=== PATIENT | female | born 1940 | race Caucasian/White ===

== ENCOUNTER 2016-09-09 15:04 | Inpatient (IN) | payer MEDICARE, BC ==
--- NOTE | ~2016-09-09 | DS ---
Unit #: [id number] #: [id number] Patient: VIMAL MELENDEZ [id number] [address] [address] [id number] I MR#: [id number] NAME: VIMAL MELENDEZ. ROOM: [facility] Age: 76 Sex: F Admission Date: 09/09/2016 : 1940 Discharge Date: 09/12/2016 Attending Physician: Allison Winter M.D. Primary Care Physician: Adelita Rodriguez M.D. DISCHARGE SUMMARY PRINCIPAL DISCHARGE DIAGNOSES 1. Upper gastrointestinal bleed. 2. Gastritis. 3. Esophageal ulcer. 4. B12 deficiency. 5. Type 2 diabetes mellitus. 6. Hyperlipidemia. 7. Hypertension. 8. Transfused one pack of RBCS for hemoglobin of less than 8. CONSULTANTS Dr. Roberth Nguyen. PROCEDURES EGD with biopsy on 09/10/2016. REASON FOR HOSPITALIZATION Patient is a 76-year-old white female with a history of gastric banding, hysterectomy, cholecystectomy, hypertension, type 2 diabetes mellitus, hyperlipidemia, presented with black tarry stools for 2 to 3 days, increasing fatigue, came to the emergency room. Hemoglobin was 8.4, coags were normal. CMP was normal except for GFR of 44 and a BUN of 35. Made NPO and started on IV Protonix, given a bolus of the continuous drip. GI was consulted. H and H were followed. Transfused one pack of RBCS for hemoglobin of less than 8. Underwent EGD on 09/10/2016 showing a distal esophageal ulcer and some gastritis. Biopsies were negative for urease. CT scan of the abdomen and pelvis was obtained as well, showing no acute findings, a few colonic diverticula, descending colon without diverticulitis, prior cholecystectomy, gastric band and hysterectomy changes. Patient's hemoglobin is stable, currently 9.0. She was found to have a low B12 and is being supplemented. She appears to be stable. Dr. Nguyen is planning outpatient colonoscopy. DISCHARGE MEDICATIONS 1. She is being discharged home with a prescription for Protonix 40 mg p.o. b.i.d. 2. She is to resume her gabapentin 300 mg q.h.s. 3. Glucophage XR 500 mg p.o. b.i.d. 4. Lasix 20 mg p.o. daily. 5. Pravachol 20 mg p.o. daily. 6. Losartan 50 mg p.o. b.i.d. 7. Humalog 75/25 KwikPen 30 units subcu b.i.d. 8. Centrum silver 1 daily. Unit #: [id number] #: [id number] Patient: VIMAL MELENDEZ 9. Hold aspirin. 10. Calcium plus D 600 mg daily. 11. B12 1,000 mcg sublingual daily. 12. Iron was actually high and will not be supplemented. FOLLOWUP She will need to follow up with Dr. Rodriguez in one week with a CBC and she will followup with Dr. Nguyen per his instructions. Dictated by... Mark Vallecillo M.D. GUY/phillip TD: 09/13/2016 06:31 JOB #: [id number] DISCHARGE SUMMARY Page 1 of 1 X Mark Vallecillo MD X DISCHARGE SUMMARY
--- NOTE | ~2016-09-09 | OR ---
Unit #: [id number] #: [id number] Patient: VIMAL MELENDEZ [id number] [address] [place], [place] [address] [id number] I MR#: [id number] NAME: VIMAL MELENDEZ ROOM: [facility] Date of Procedure: 09/10/2016 Admission Date: 09/09/2016 Surgeon: Roberth Nguyen M.D. : 1940 Attending Physician: Allison Winter M.D. Primary Care Physician: Adelita Rodriguez M.D. OPERATIVE REPORT PRIMARY CARE PHYSICIAN Ethan Rodriguez M.D. PREOPERATIVE DIAGNOSES Anemia, acute gastrointestinal blood loss, history of melena. PROCEDURES PERFORMED Upper gastrointestinal endoscopy and biopsy. POSTOPERATIVE DIAGNOSES 1. The patient had diffuse prepyloric antral mild gastritis. 2. There was a single 1.5 cm deep crater ulcer in the distal esophagus above the Lap-Band. 3. Postsurgical changes of Lap-Band surgery. 4. Rest of the examination up to third part of duodenum was normal. A biopsy was obtained from the antrum for CLOtest. RECOMMENDATIONS 1. The patient is advised to use pantoprazole 40 mg p.o. daily. 2. She will require a colonoscopy in the next few days and this can be scheduled as an outpatient in the next week to 10 days. 3. Her posttransfusion hemoglobin after 1 unit of packed cells went from 7.5 to 9 g and she can be discharged home if the hemoglobin is stable in the next 24 hours. SEDATION USED MAC. DESCRIPTION OF PROCEDURE Following detailed explanation of potential risks and complications of an upper endoscopy, namely perforation, bleeding, and complication related to sedation, the patient was brought to GI lab and laid in the left lateral decubitus position. Lubricated tip of the Olympus video upper endoscope was passed through the bite block into the proximal esophagus under direct vision. The entire esophageal mucosa was examined. The patient was noted to have postsurgical changes of Lap-Band surgery with a single large 1.5 cm ulcer in the distal esophagus above the Lap-Band surgery. This was crater and grayish-white base with no stigmata of recent bleed. The scope was then advanced into the gastric cavity. Postsurgical changes of Lap-Band surgery were seen. Mucosa of the fundus, body, and antrum examined and the patient was noted to have a diffuse antral gastritis. Pylorus was intubated with visualization of normal duodenal bulb and Unit #: [id number] #: [id number] Patient: VIMAL MELENDEZ second and third part of the duodenum. Upon withdrawal and retroflexion, incisura, cardia, and greater curve examined and biopsy obtained from the antrum for CLOtest. The scope was withdrawn in the distal esophagus. Entire esophageal mucosa was examined all the way to pharynx and no additional findings noted. The patient tolerated the procedure without any postprocedure complications. Dictated by... Noemí Almeida/chet TD: 09/10/2016 23:34 JOB #: [id number] CC: Noemí Colmenares M.D. OPERATIVE REPORT Page 1 of 1 X Roberth Nguyen MD X PROCEDURE OPERATIVE NOTE
--- NOTE | ~2016-09-09 | CO ---
Unit #: [id number] #: [id number] Patient: VIMAL MELENDEZ [id number] [address] [place], [place] [address] [id number] I MR#: [id number] NAME: VIMAL MELENDEZ. ROOM: [facility] Age: 76 Sex: F Admission Date: 09/09/2016 : 1940 Attending Physician: Allison Winter M.D. Primary Care Physician: Adelita Rodriguez M.D. Consultation Date: 09/10/2016 CONSULTATION REPORT REASON FOR CONSULTATION Iron-deficiency anemia and history of melena. HISTORY OF PRESENT ILLNESS Ms. Melendez is a 76-year-old white female. The patient is status post lap band surgery more than 5 years. She has presented with history of increasing constipation followed by left lower quadrant abdominal pain and history of black tarry stools. Upon her evaluation, she has been found to have moderately severe iron deficiency anemia. The patient says she was getting increasingly fatigued and tired over the past several weeks. Her admission hemoglobin is 7.4, and since then she has been given unit of packed cells. PAST MEDICAL HISTORY Significant for history of diabetes, hypertension, hyperlipidemia. PAST SURGICAL HISTORY Included lap band surgery as well as cholecystectomy, hysterectomy, bladder surgery, removal of cyst from the throat and breast. MEDICATIONS At home included gabapentin, Lasix, Humalog insulin, Glucophage, Pravachol, losartan, Centrum Silver, Caltrate, and aspirin. ALLERGIES She is allergic to penicillins cause itching and rash, sulfonamides, and codeine. SOCIAL HISTORY The patient lives by herself. Does not smoke or drink alcohol. FAMILY HISTORY Significant for diabetes. No family history of colon, pancreatic cancer, or liver disease. REVIEW OF SYSTEMS Detailed review of organ systems significant for history of increasing fatigue and lethargic. There is also history of left lower quadrant abdominal pain. History of melena as mentioned above. No history of fever, chills, or rigors. No history of weight loss. No history of headache, seizures, or chest pain. No history of cough, expectoration, or hemoptysis. No history of focal seizures or extremity weakness. Rest of review of organ systems is unremarkable. Unit #: [id number] #: [id number] Patient: VIMAL MELENDEZ PHYSICAL EXAMINATION GENERAL: She is alert and oriented, and comfortable and pale. VITAL SIGNS: Indicate a temperature of 97.9, pulse 83 per minute and regular, respirations 22, and blood pressure 142/77. She weighs 182 pounds and her baseline weight in the past has been about 210 pounds. HEENT: She has moderate pallor. There being no icterus, lymphadenopathy, or peripheral edema. CARDIOVASCULAR: Normal heart sounds. No murmurs on auscultation. LUNGS: Reveal normal breath sounds. Good air entry. ABDOMEN: Soft, obese, and nontender. Liver and spleen are not palpable. Bowel sounds normal. DIAGNOSTIC STUDIES LABORATORY RESULTS: Hemoglobin of 7.3 with normochromic normocytic red cell indices. White count is normal and platelet count is also normal. Serum chemistry shows a BUN and creatinine of 35 and 1.2. LFTs are normal. Glycohemoglobin has not been done. IMPRESSION 1. The most likely etiology of the patient's presentation is gastrointestinal bleed with underlying iron deficiency anemia. The patient has a history of melena and therefore an upper endoscopy will be performed today. If the latter is normal, a colonoscopy entertained later on or as an outpatient. 2. We will also obtain serum iron, TIBC, ferritin, B12, and folate levels. 3. Obtain stool studies for occult blood. 4. Underlying history of obesity, diabetes, hypertension, and hyperlipidemia. Thank you very much for asking me to see this pleasant woman. I appreciate the consult. Dictated by... Noemí Almeida/chet TD: 09/11/2016 00:19 JOB #: [id number] CC: Noemí Samuel M.D. Kusum Nigam, M.D. CONSULTATION REPORT Page 1 of 1 X Roberth Nguyen MD CONSULTATION REPORT
--- NOTE | ~2016-09-09 | CT4 ---
[facility] A Service of [facility] RADIOLOGY TEXT RESULTS PATIENT: VIMAL MELENDEZ LOCATION: [facility] 341-01 : 41 UNIT #: [id number] AGE: [address]: Allison Winter MD SEX: F ORDER DR: [id number] [facility] [address]. [place], [place] [address] [id number] I MR#: [id number] Acc #: [id number] NAME: VIMAL MELENDEZ. : 1940 SEX: F STUDY DATE/TIME: 09/10/2016 20:13 UNIT: A [facility] ROOM: [facility] STUDY DESCRIPTION: CT Abd and Pelv Wo Cont Attending Physician: Allison Winter M.D. Ordering Physician: Allison Winter M.D. Primary Care Physician: Adelita Rodriguez M.D. MEDICAL IMAGING REPORT This report is preliminary unless electronic signature is present EXAM CT abdomen and pelvis without contrast Date: 09/10/2016 at 20:13 HISTORY Lower abdominal pain, GI bleed, black stools, left lower quadrant abdominal pain for 2 weeks. Additional history of cardiac disease, hypertension, diabetes. History of bladder tumor removal. Hysterectomy. TECHNIQUE This CT exam was performed with one or more of the following radiation dose reduction techniques: automatic exposure control, adjustment of mA and/or kV according to patient size, and iterative reconstruction. COMPARISON None. PROCEDURE 5 mL axial images from the lung bases through lesser trochanters without intravenous or enteric contrast administration. Sagittal coronal reformed images were obtained. FINDINGS Abdomen findings: Beam-hardening artifact from the presumed metallic device external to the patient obscures several of the images through the upper abdomen. Gastric band device appears appropriately positioned. Lung bases appear free of consolidation. Coronary calcifications are present. Cholecystectomy. Noncontrast appearance of the liver, spleen, adrenals and kidneys within normal limits. Pancreas is atrophic. Limited evaluation of bowel due to lack of enteric contrast but no focal bowel inflammation is seen. There is sparse diverticular changes within the [facility] A Service of [facility] RADIOLOGY TEXT RESULTS PATIENT: VIMAL MELENDEZ LOCATION: [facility] 341-01 : 41 UNIT #: [id number] AGE: [address]: Allison Winter MD SEX: F ORDER DR: descending colon without evidence of acute diverticulitis. The appendix is normal. Advanced calcific atherosclerosis in the abdominal aorta, without aneurysm. Pelvic findings: Hysterectomy. Urinary bladder and rectum are within limits. Degenerative changes lumbar spine, greatest at L1-2. No acute osseous abnormalities are identified. IMPRESSION 1. No acute findings in the abdomen and pelvis. 2. Sparse descending colonic diverticulosis without diverticulitis. No acute bowel inflammatory change is seen. Limited evaluation bowel due to lack of enteric contrast. 3. Cholecystectomy. Gastric band device in place. Presumed hysterectomy. Dictated by... Maddie Gamez M.D. THIS IS AN ELECTRONICALLY VERIFIED REPORT Maddie Gamez M.D. at 09/14/2016 8:47 AM DANIEL/micaela TD: 09/11/2016 02:18 JOB #: [id number] MEDICAL IMAGING REPORT Page 1 of 1 COPY
--- NOTE | ~2016-09-09 | EKG ---
PATIENT: VIMAL MELENDEZ UNIT #: [id number] Ventricular Rate: 95 BPM Atrial Rate: 95 BPM P-R Interval: 224 ms QRS Duration: 140 ms Q-T Interval: 388 ms QTC Calculation(Bezet): 487 ms P Stewart: 41 degrees Calculated R Stewart: -10 degrees Calculated T Stewart: 139 degrees Diagnosis Line: Sinus rhythm with 1st degree A-V block Diagnosis Line: Left bundle branch block with repolarization Diagnosis Line: abnormality Baseline wander Diagnosis Line: Abnormal ECG Diagnosis Line: When compared with ECG of 28-APR-2015 10:16, Diagnosis Line: QRS axis Shifted right Diagnosis Line: Confirmed by KANA KHALIL MD ([id number]) on 09/09/2016 Diagnosis Line: 6:11:04 PM INTERPRETING MD: REMI RHODES
--- NOTE | ~2016-09-09 | HP ---
Unit #: [id number] #: [id number] Patient: VIMAL MELENDEZ [id number] [address] [place], [place] [address] [id number] Salome MR#: [id number] NAME: VIMAL MELENDEZ ROOM: 341 Age: 76 Sex: F Admission Date: 09/09/2016 : 1940 Attending Physician: Allison Winter M.D. Primary Care Physician: Adelita Rodriguez M.D. HISTORY AND PHYSICAL ADMISSION DIAGNOSES 1. Gastrointestinal bleed. 2. Hypertension. 3. Diabetes. 4. Dyslipidemia. 5. History of gallbladder cancer. 6. Chronic kidney disease. 7. Anemia of chronic disease. HISTORY OF PRESENT ILLNESS Ms. Melendez is a 76-year-old female, patient of Dr. Rodriguez, who started noticing black, tarry stools for the last 2 or 3 days. The patient also was increasingly weak and fatigued and came to the emergency room for evaluation. She was started on IV PPI and evaluated by Gastroenterology. She underwent EGD which showed a duodenal ulcer. Patient was switched to p.o. PPI and advised to resume the diet. I am seeing patient post-EGD and she informs me that she wants to have a colonoscopy done during this hospitalization. She tells me that she is getting dizzy when she changes position. Denies any chest pain. Denies any headache. Denies any nausea, vomiting, or diarrhea. Currently denies any abdominal pain. Denies any syncopal episode or presyncopal feelings. REVIEW OF SYSTEMS Twelve-point review of systems on this patient is basically negative except as above. PAST MEDICAL HISTORY Significant for: 1. History of hypertension. 2. Diabetes. 3. Dyslipidemia. 4. History of chronic kidney disease even though patient does not recall being diagnosed with CKD, I am looking at the chart. Her GFR is currently at 44 and it has been as low as 39 going through the chart all the way through June 2010. 5. History of bladder cancer. PAST SURGICAL HISTORY Significant for: 1. Hysterectomy. 2. Bladder surgery secondary to cancer. 3. Cholecystectomy. 4. Gastric Lap-Band. 5. Bilateral cataract. Unit #: [id number] #: [id number] Patient: VIMAL MELENDEZ 6. Tonsillectomy. 7. Breast surgery secondary to cysts. HOME MEDICATIONS 1. Lasix. 2. NovoLog mix. 3. Pravastatin. 4. Losartan. 5. Carvedilol. 6. Multivitamins. 7. Calcium with vitamin D. 8. Aspirin. SOCIAL HISTORY Remote smoker, quit about 30 years ago, denies any alcohol or illicit drugs. FAMILY HISTORY Unremarkable. PHYSICAL EXAMINATION VITAL SIGNS: BP 142/77, heart rate 83, respirations 22, temperature 97.9. GENERAL: The patient is a 76-year-old female in no acute distress. HEENT: Head is atraumatic. Pupils equal, round, reactive to light and accommodation. Extraocular muscles are intact. Oropharynx is clear. NECK: Supple. No mass, no JVD, no bruits. LUNGS: Diminished bilaterally. HEART: S1, S2. No murmurs. ABDOMEN: Soft, nontender, nondistended. LOWER EXTREMITIES: Without any cyanosis, clubbing, or edema. NEUROLOGIC: Grossly intact. No focal deficits. DIAGNOSTIC STUDIES LABORATORY: Chemistry significant for BUN 25, creatinine 1.2, blood glucose 181. White count 5.3, hemoglobin 9, hematocrit 27.3. ASSESSMENT AND PLAN 1. Question of gastrointestinal bleed, status post EGD. Continue p.o. PPI per Gastroenterology recommendations. Patient wants the colonoscopy to be done during this hospitalization. Will let Dr. Nguyen know that patient would like to have a colonoscopy done while on this hospitalization. Monitor hemoglobin and hematocrit. Will get CT abdomen and pelvis without contrast. 2. Hypertension. Continue home medications. 3. Diabetes. Resume home medications. 4. Dyslipidemia. Continue statin. 5. History of bladder cancer, status post surgery. 6. Chronic kidney disease. Monitor renal function. 7. Anemia of chronic disease, as above. 8. GI and DVT prophylaxis. Continue PPI. Will put on SCDs. Dictated by Unit #: [id number] #: [id number] Patient: NORAVIMALNoemí Garnett/ally TD: 09/10/2016 21:26 JOB #: [id number] HISTORY AND PHYSICAL Page 1 of 1 X Tejas Ash MD HISTORY AND PHYSICAL
[~2016-09-09 15:04] MED LIST: ASPIRIN81 M1 PO; ASPIRIN81 M2 PO; ASPIRINEC PO; CALTRATE 600+D PO; CARVEDILOL3.125 MG PO; CELEBREX PO; CENTRUM SILVER PO; CRESTOR PO; DIOVAN PO; LANTUS100 U/ML; LASIX PO; LOSARTAN POTASS25 MG PO; LOSARTAN POTASS50 MG PO; MULTI-VIT/MIN P1 TAB PO; NOVOLOG7030 SQ; PHENERGAN PO; PRAVASTATIN SOD20 MG PO
[2016-09-09] MEDS ORDERED: GABAPENTIN600 MG PO (16:03)
[2016-09-09] MEDS ORDERED: GLUCOPHAGE XR500 MG PO (16:04)
[2016-09-09] MEDS ORDERED: LASIX20 MG PO (16:04)
[2016-09-09] MEDS ORDERED: HUMALOG MI100 UNIT/2 SUBQ (16:04)
[2016-09-09] MEDS ORDERED: LOSARTAN POTASS50 MG PO (16:05)
[2016-09-09] MEDS ORDERED: PRAVACHOL20 MG PO (16:05)
[2016-09-09] MEDS ORDERED: CENTRUM SILVER PO (16:20)
[2016-09-09] MEDS ORDERED: CALTRATE 600+D PO (16:20)
[2016-09-09] MEDS ORDERED: ASPIRIN81 M2 PO (16:20)
[2016-09-09 16:50] LABS: BASOPHIL# 0.1 X10e3 (0-0.3); EOSINOPHIL# 0.1 X10e3 (0-0.7); EOSINOPHIL% 1.4 % (0.0-7.0); HEMATOCRIT 25.3 % (35.0-45.0); HEMOGLOBIN 8.4 gm/dL (12.0-16.0); LYMPHOCYTE# 1.9 X10e3 (1.0-3.5); LYMPHOCYTE% 27.1 % (17.0-45.0); MEAN CORPUSCULAR HEMOGLOBIN 29.1 PG (28-34); MEAN PLATELET VOLUME 7.5 FL (6.5-11.5); MONOCYTE# 0.4 X10e3 (0-1.0); NEUTROPHIL# 4.5 X10e3 (1.5-7.1); NEUTROPHIL% 64.5 % (40-75); PLATELET COUNT 194 X10e3 (140-420); RED BLOOD COUNT 2.88 X10e (3.90-5.30); RED CELL DISTRIBUTION WIDTH 14.6 % (11.0-15.5)
[2016-09-09 16:51] LABS: DIFF IND NO
[2016-09-09 17:16] LABS: PARTIAL THROMBOPLASTIN TIME 22.8 SECONDS (23.5-31.3); PROTHROMBIN TIME (PATIENT) 10.8 SECONDS (9.6-11.5)
[2016-09-09 17:17] LABS: ALBUMIN SERUM 3.8 g/dL (3.5-5.0); BILIRUBIN, DIRECT 0.1 mg/dL (0.0-0.2); BILIRUBIN,INDIRECT 0.6 mg/dL (0.0-0.9); BILIRUBIN,TOTAL 0.7 mg/dL (0.2-2.0); BUN/CREATININE RATIO 29.16; CALCIUM SERUM 9.2 mg/dL (8.4-10.2); CREATININE SERUM 1.2 mg/dL (0.6-1.4); GLOM FILT RATE Estimated 44.2 mL/min (>60); POTASSIUM 3.7 mmol/L (3.5-5.1); PROTEIN TOTAL SERUM 6.5 g/dL (6.0-8.3)
[2016-09-09 19:35] LABS: HEMATOCRIT 26.3 % (35.0-45.0); HEMOGLOBIN 8.5 gm/dL (12.0-16.0)
[2016-09-10 01:03] LABS: HEMATOCRIT 21.8 % (35.0-45.0); HEMOGLOBIN 7.3 gm/dL (12.0-16.0)
[2016-09-10 08:45] LABS: BASOPHIL% 0.8 % (0-2.5); EOSINOPHIL# 0.2 X10e3 (0-0.7); EOSINOPHIL% 3.8 % (0.0-7.0); HEMATOCRIT 27.3 % (35.0-45.0); LYMPHOCYTE# 1.7 X10e3 (1.0-3.5); LYMPHOCYTE% 32.6 % (17.0-45.0); MEAN CELL VOLUME 88.5 FL (83-96); MEAN CORPUSCULAR HEMOGLOBIN 29.3 PG (28-34); MEAN CORPUSCULAR HGB CONC 33.1 g/dL (30-36); MONOCYTE# 0.4 X10e3 (0-1.0); MONOCYTE% 7.7 % (3.0-12.0); NEUTROPHIL# 2.9 X10e3 (1.5-7.1); NEUTROPHIL% 55.1 % (40-75); PLATELET COUNT 181 X10e3 (140-420); RED BLOOD COUNT 3.08 X10e (3.90-5.30); RED CELL DISTRIBUTION WIDTH 14.1 % (11.0-15.5); WHITE BLOOD COUNT 5.3 X10e3 (4.0-10.5)
[2016-09-10 08:46] LABS: DIFF IND NO
[2016-09-10 09:07] LABS: BUN/CREATININE RATIO 20.83; CALCIUM SERUM 8.4 mg/dL (8.4-10.2); CREATININE SERUM 1.2 mg/dL (0.6-1.4); GLOM FILT RATE Estimated 44.2 mL/min (>60); POTASSIUM 3.9 mmol/L (3.5-5.1)
[2016-09-10 09:13] LABS: IRON SERUM 217 ug/dL (28-170); TOTAL IRON BINDING CAPACITY 382 ug/dL (269-535); TRANSFERRIN 273 mg/dL (192-382); TRANSFERRIN SATURATION 57 % (20-50)
[2016-09-10 11:26] LABS: FOLATE (FOLIC ACID) 19.4 ng/mL (>5.8)
[2016-09-10 23:54] LABS: HEMATOCRIT 26.5 % (35.0-45.0); HEMOGLOBIN 8.8 gm/dL (12.0-16.0)
[2016-09-11 05:35] LABS: BASOPHIL% 0.6 % (0-2.5); DIFF IND NO; EOSINOPHIL# 0.2 X10e3 (0-0.7); EOSINOPHIL% 2.9 % (0.0-7.0); HEMOGLOBIN 8.5 gm/dL (12.0-16.0); LYMPHOCYTE# 1.6 X10e3 (1.0-3.5); LYMPHOCYTE% 24.9 % (17.0-45.0); MEAN CELL VOLUME 88.6 FL (83-96); MEAN CORPUSCULAR HEMOGLOBIN 29.1 PG (28-34); MEAN CORPUSCULAR HGB CONC 32.8 g/dL (30-36); MONOCYTE# 0.6 X10e3 (0-1.0); MONOCYTE% 9.3 % (3.0-12.0); NEUTROPHIL% 62.3 % (40-75); PLATELET COUNT 170 X10e3 (140-420); RED BLOOD COUNT 2.93 X10e (3.90-5.30); RED CELL DISTRIBUTION WIDTH 14.5 % (11.0-15.5); WHITE BLOOD COUNT 6.4 X10e3 (4.0-10.5)
[2016-09-11 06:17] LABS: ALBUMIN SERUM 2.9 g/dL (3.5-5.0); BILIRUBIN,TOTAL 0.4 mg/dL (0.2-2.0); BUN/CREATININE RATIO 15.83; CALCIUM SERUM 8.4 mg/dL (8.4-10.2); CREATININE SERUM 1.2 mg/dL (0.6-1.4); GLOM FILT RATE Estimated 44.2 mL/min (>60); POTASSIUM 4.2 mmol/L (3.5-5.1); PROTEIN TOTAL SERUM 4.9 g/dL (6.0-8.3)
[2016-09-11 11:21] LABS: HEMATOCRIT 29.4 % (35.0-45.0); HEMOGLOBIN 9.7 gm/dL (12.0-16.0)
[2016-09-11 17:14] LABS: HEMATOCRIT 26.9 % (35.0-45.0); HEMOGLOBIN 8.8 gm/dL (12.0-16.0)
[2016-09-11 23:39] LABS: HEMATOCRIT 27.1 % (35.0-45.0)
[2016-09-12 06:08] LABS: BILIRUBIN,TOTAL 0.3 mg/dL (0.2-2.0); BUN/CREATININE RATIO 10.83; CALCIUM SERUM 8.5 mg/dL (8.4-10.2); CREATININE SERUM 1.2 mg/dL (0.6-1.4); GLOM FILT RATE Estimated 44.2 mL/min (>60); POTASSIUM 4.1 mmol/L (3.5-5.1); PROTEIN TOTAL SERUM 5.4 g/dL (6.0-8.3)
[2016-09-12 06:24] LABS: HEMATOCRIT 27.4 % (35.0-45.0)
[2016-09-12 10:58] LABS: HEMATOCRIT 27.7 % (35.0-45.0); HEMOGLOBIN 9.2 gm/dL (12.0-16.0)
[2016-09-12] MEDS ORDERED: PROTONIX PO (11:20)
[2016-09-12] MEDS ORDERED: VITAMIN B-121000 MC1 SL (11:21)
== END 2016-09-12 12:47 | disposition home or self-care (01) | DRG 378 ==
LOC: CED 15:04 → CEDOF 18:35 → CED 19:14 → CEDOF 19:14 → C3A PCU 21:03 → CEDOF 21:03 → C3A PCU 09-12 12:47
PROVIDERS: Emergency Medicine; Internal Medicine; Internal Medicine Gastroenterology; Physician Assistant Medical
PROC: 0DB68ZX Excision of Stomach, Via Natural or Artificial Opening Endoscopic, Diagnostic (ICD-10-PCS; principal; 2016-09-10 17:32)
PROC: 30233N1 Transfusion of Nonautologous Red Blood Cells into Peripheral Vein, Percutaneous Approach (ICD-10-PCS; 2016-09-10 17:32)
DX: K92.2 Gastrointestinal hemorrhage, unspecified (principal); D62 Acute posthemorrhagic anemia; E11.9 Type 2 diabetes mellitus without complications; K22.10 Ulcer of esophagus without bleeding; D50.9 Iron deficiency anemia, unspecified; I10 Essential (primary) hypertension; E53.8 Deficiency of other specified B group vitamins; E66.9 Obesity, unspecified; Z79.84 Long term (current) use of oral hypoglycemic drugs; E78.5 Hyperlipidemia, unspecified; K29.50 Unspecified chronic gastritis without bleeding; K57.90 Diverticulosis of intestine, part unspecified, without perforation or abscess without bleeding; Z90.49 Acquired absence of other specified parts of digestive tract; Z90.710 Acquired absence of both cervix and uterus; Z68.37 Body mass index [BMI] 37.0-37.9, adult
CPT/HCPCS: 36415; 74176; 80048; 80053; 80076; 82607; 82746; 82947; 83540; 83550; 85014; 85018; 85025; 85610; 85730; 86850; 86900; 86901; 86923; 87077; 93005; 96361; 96374; 99285; C9113; J1815; J2270; J2916; J3420; P9016

== ENCOUNTER → 2016-09-24 | Day surgery (SDC) | payer MEDICARE, BC ==
[~2016-09-24] MED LIST changes: +GABAPENTIN600 MG PO; +GLUCOPHAGE XR500 MG PO; +HUMALOG MI100 UNIT/2 SUBQ; +LASIX20 MG PO; +PRAVACHOL20 MG PO; +PROTONIX PO; +VITAMIN B-121000 MC1 SL
--- NOTE | ~2016-09-24 | OR ---
Unit #: [id number] #: [id number] Patient: VIMAL MELENDEZ [id number] [address] [place], [place] [address] [id number] MR#: [id number] NAME: VIMAL MELENDEZ ROOM: Date of Procedure: 09/24/2016 Admission Date: 09/24/2016 Surgeon: Roberth Nguyen M.D. : 1940 Attending Physician: Roberth Nguyen M.D. Primary Care Physician: Adelita Rodriguez M.D. OPERATIVE REPORT PREOPERATIVE DIAGNOSIS Colorectal cancer screening in an average-risk patient. PROCEDURE PERFORMED Colonoscopy up to cecum with excellent preparation and good visualization. POSTOPERATIVE DIAGNOSES Mild sigmoid and descending colon diverticulosis. Otherwise, normal examination up to cecum. No polyps were seen. RECOMMENDATIONS No further evaluation is indicated in view of the patient's age of 76. SEDATION USED MAC. DESCRIPTION OF PROCEDURE Following detailed explanation of the potential risks and complications of a colonoscopy, namely perforation, bleeding, and complications related to sedation, the patient was brought to GI lab and laid in the left lateral decubitus position. A digital rectal examination was performed, which was normal. Lubricated tip of the Olympus video colonoscope was inserted through the anus and advanced under direct vision. The scope was advanced past rectosigmoid into descending colon. Multiple small diverticula were noted in this area. The scope tip was then navigated all the way up to cecum with visualization of the ileocecal valve and the appendiceal orifice. Preparation was excellent with good visualization and photodocumentation was obtained. Successive segments of the colonic mucosa were examined upon withdrawal and appeared unremarkable. There being no polyps, mass lesions, or AVMs. Other than the scant diverticula, no other abnormalities were noted. The patient did not have any internal hemorrhoids at anal verge. The scope was then withdrawn and the patient returned to the recovery area. She tolerated the procedure without any postprocedure complications. Dictated by... Noemí Almeida/chet Unit #: [id number] #: [id number] Patient: VIMAL MELENDEZ TD: 09/24/2016 18:54 JOB #: [id number] OPERATIVE REPORT Page 1 of 1 X Roberth Nguyen MD PROCEDURE OPERATIVE NOTE
== END | disposition home or self-care (01) ==
LOC: COPS 09:25
DX: Z12.11 Encounter for screening for malignant neoplasm of colon (principal); K57.30 Diverticulosis of large intestine without perforation or abscess without bleeding; I10 Essential (primary) hypertension; G47.30 Sleep apnea, unspecified; E11.40 Type 2 diabetes mellitus with diabetic neuropathy, unspecified; E11.319 Type 2 diabetes mellitus with unspecified diabetic retinopathy without macular edema; K21.9 Gastro-esophageal reflux disease without esophagitis; Z88.0 Allergy status to penicillin; Z88.2 Allergy status to sulfonamides; Z88.5 Allergy status to narcotic agent; Z79.899 Other long term (current) drug therapy; Z90.49 Acquired absence of other specified parts of digestive tract; Z90.710 Acquired absence of both cervix and uterus; Z98.84 Bariatric surgery status
CPT/HCPCS: 82947